=== PATIENT | male | born 1975 | race African-American/Black ===

== ENCOUNTER 2022-05-23 10:19 | Outpatient (CLI) | payer MEDICARE, OTHER ==
--- NOTE | 2022-05-23 17:20 | XRAY Report ---
PROCEDURE: Thoracic Spine 2 View INDICATIONS: UPPER BACK PX TECHNIQUE: 2 views of the thoracic spine were acquired. COMPARISON: None. FINDINGS: Bones: No fractures or dislocations. No suspicious bony lesions. 12 pairs of ribs are noted, and a ppear intact where visualized. Soft tissues: No paravertebral stripe thickening. Dorsal column stimulator enters the spinal canal at T12-L1 and extends to the level of the top of T8. IMPRESSION: Dorsal column stimulator. No evidence of acute bony abnormality of the thoracic spine. Reviewed by: Sterling Anderson MD on 05/23/2022 5:18 PM PDT Approved by: Sterling Anderson MD on 05/23/2022 5:18 PM PDT Station ID: [id number]
--- NOTE | 2022-05-23 17:21 | XRAY Report ---
PROCEDURE: Lumbar Spine 2 View INDICATIONS: LOW BACK PX TECHNIQUE: 2 views of the lumbar spine were acquired. COMPARISON: Thoracic spine from same date FINDINGS: Bones: 5 [id number] vertebrae are present. There is normal bony alignment. No vertebral body compression fractures. No suspicious bony lesions. Severe disc height loss at L5-S1. Bilateral tota l hip arthroplasties. Soft tissues: Overlying bowel gas pattern is normal. No suspicious soft tissue calcifications. Avni coretta column stimulator in place. IMPRESSION: Lower lumbar degenerative disc disease. No evidence acute bony abnormality of the lumbar spine. Reviewed by: Sterling Anderson MD on 05/23/2022 5:19 PM PDT Approved by: Sterling Anderson MD on 05/23/2022 5:19 PM PDT Station ID: [id number]
--- NOTE | 2022-05-23 17:22 | XRAY Report ---
PROCEDURE: Pelvis 1 View INDICATIONS: HIP PX TECHNIQUE: 1 view(s) of the pelvis acquired. COMPARISON: None. FINDINGS: Bones: No fractures or dislocations. No suspicious bony lesions. Visualized portions of the bilater al total hip arthroplasties are unremarkable. Mild nonbridging heterotopic bone at the hip joints ilsa aterally. No evidence of hardware failure or loosening on this single view. Soft tissues: Visualized bowel gas pattern is normal. No suspicious soft tissue calcifications. Do rsal column stimulator. IMPRESSION: No evidence acute bony abnormality of the pelvis. Reviewed by: Sterling Anderson MD on 05/23/2022 5:21 PM PDT Approved by: Sterling Anderson MD on 05/23/2022 5:21 PM PDT Station ID: [id number]
== END 2022-05-23 10:20 | disposition home or self-care (01) ==
LOC: DI.N 10:19
PROVIDERS: ATTEND Internal Medicine Rheumatology
DX: M47.9 Spondylosis, unspecified (principal); M54.9 Dorsalgia, unspecified; Z96.82 Presence of neurostimulator; M51.36 Other intervertebral disc degeneration, lumbar region; Z96.643 Presence of artificial hip joint, bilateral
CPT/HCPCS: 36415; 80053; 85025; 85651

== ENCOUNTER 2022-05-23 10:40 | Outpatient (CLI) | payer MEDICARE, OTHER ==
[2022-05-23 12:01] LABS: BASOPHILS # (AUTO) 0.1 10^3/uL (0.0-0.1); EOSINOPHILS # (AUTO) 0.4 10^3/uL (0.0-0.7); EOSINOPHILS % (AUTO) 7.3 %; HCT - HEMATOCRIT 43.4 % (42.0-52.0); HGB - HEMOGLOBIN 14.5 g/dL (14.0-18.0); LYMPHOCYTES # (AUTO) 1.9 10^3/uL (1.5-3.5); LYMPHOCYTES % (AUTO) 35.7 %; MEAN CORPUSCULAR HEMOGLOBIN 32.2 pg (27.0-31.0); MEAN CORPUSCULAR HGB CONC 33.4 g/dL (32.0-36.0); MEAN CORPUSCULAR VOLUME 96.4 fL (80.0-94.0); MEAN PLATELET VOLUME 10.4 fL (7.4-11.4); MONOCYTES # (AUTO) 0.6 10^3/uL (0.0-1.0); MONOCYTES % (AUTO) 10.7 %; NEUTROPHILS # (AUTO) 2.4 10^3/uL (1.5-6.6); NEUTROPHILS % (AUTO) 45.1 %; PLT - PLATELET COUNT 233 10^3/uL (130-450); RED CELL DISTRIBUTION WIDTH 12.5 % (12.0-15.0); WHITE BLOOD COUNT 5.2 x10^3/uL (4.8-10.8)
[2022-05-23 12:14] LABS: ALBUMIN 4.3 g/dL (3.2-5.5); ALBUMIN/GLOBULIN RATIO 1.5 (1.0-2.2); BILIRUBIN,TOTAL 0.6 mg/dL (0.2-1.0); CALCIUM 10.2 mg/dL (8.5-10.3); CREATININE 1.1 mg/dL (0.6-1.2); POTASSIUM 4.7 mmol/L (3.5-5.0); TOTAL PROTEIN 7.2 g/dL (6.7-8.2)
== END 2022-05-23 10:41 | disposition home or self-care (01) ==
LOC: LAB.N 10:40
PROVIDERS: ATTEND Internal Medicine Rheumatology
DX: M47.9 Spondylosis, unspecified (principal)
CPT/HCPCS: 36415; 80053; 85025; 85651